=== PATIENT | male | born 1990 | race African-American/Black ===

== ENCOUNTER 2017-10-30 02:48 | Emergency (ER) | payer SELFPAY ==
[~2017-10-30] VITALS: Ht 177.8 cm; Wt 90.0 kg
[2017-10-30 06:16] VITALS: BP 101/47
[2017-10-30] MEDS ORDERED: ACETAMINOPHEN 650MG/20.3ML UDC PO ONE (06:45)
[2017-10-30] MEDS ORDERED: ONDANSETRON HCL 4MG/2ML VIAL IV ONE (06:45)
[2017-10-30] MEDS ORDERED: SODIUM CHLORIDE 0.9% 1,000 ML IV ONE (06:45)
== END 2017-10-30 09:06 | disposition left against medical advice (07) ==
LOC: ER 02:48
DX: S00.83XA Contusion of other part of head, initial encounter (principal); F10.129 Alcohol abuse with intoxication, unspecified; X58.XXXA Exposure to other specified factors, initial encounter; Y93.89 Activity, other specified; Y92.89 Other specified places as the place of occurrence of the external cause; Y99.8 Other external cause status
CPT/HCPCS: 70450; 70486; 99284; J2405; J7030